=== PATIENT | male | born 1965 | race Caucasian/White ===

== ENCOUNTER → 2017-10-14 | Outpatient (CLI) | payer BC ==
[2017-10-14 15:08] LABS: EOS # 0.2 (0.04-0.40); HEMATOCRIT 53.6 % (42.0-52.0); HEMOGLOBIN 18.5 g/dL (13.5-18.0); MEAN CELL VOLUME 84 fl (78-100); MEAN CORPUSCULAR HEMOGLOBIN 29 pg (27-31); MEAN CORPUSCULAR HGB CONC 35 g/dL (33-37); MEAN PLATELET VOLUME 10.1 fl (7.4-10.4); MONO # 0.7 (0.20-0.80); NEU # 6.6 (1.40-6.50); PLATELET COUNT 264 K/mm3 (130-400); RED BLOOD COUNT 6.35 M/mm3 (4.20-5.60); RED CELL DISTRIBUTION WIDTH 14.8 % (11.5-14.5); WHITE BLOOD COUNT 9.6 K/mm3 (4.8-10.8)
[2017-10-14 15:39] LABS: URINE APPEARANCE CLEAR; URINE COLOR YELLOW
[2017-10-14 15:40] LABS: URINE BILIRUBIN NEGATIVE (NEGATIVE); URINE BLOOD NEGATIVE (NEGATIVE); URINE GLUCOSE NEGATIVE (NEGATIVE); URINE KETONE NEGATIVE (NEGATIVE); URINE LEUKOCYTE ESTERASE TRACE (NEGATIVE); URINE NITRATE NEGATIVE (NEGATIVE); URINE PROTEIN(semi-quant) NEGATIVE (NEGATIVE); URINE UROBILINOGEN NORMAL (NORMAL); URINE WBC 0-1 /hpf (0-3)
[2017-10-14 15:42] LABS: ALBUMIN 4.1 g/dL (3.5-5.0); BUN/CREATININE RATIO 14.2 (6.0-26.0); CALCIUM 9.1 mg/dL (8.4-10.2); POTASSIUM 3.8 mmol/L (3.6-5.0); TOTAL BILIRUBIN 1.2 mg/dL (0.2-1.3); TOTAL PROTEIN 7.7 g/dL (6.3-8.2)
[2017-10-14 16:19] LABS: ERYTHROCYTE SEDIMENTATION RATE 1 mm/hr (0-20)
[2017-10-14 22:48] LABS: TESTOSTERONE 768 ng/dL (221-716)
== END ==
LOC: LAB 14:42
PROVIDERS: Internal Medicine
DX: Z00.00 Encounter for general adult medical examination without abnormal findings (principal); Z12.5 Encounter for screening for malignant neoplasm of prostate; Z12.11 Encounter for screening for malignant neoplasm of colon; E11.9 Type 2 diabetes mellitus without complications; L65.9 Nonscarring hair loss, unspecified; E78.5 Hyperlipidemia, unspecified; R20.2 Paresthesia of skin

== ENCOUNTER → 2017-10-16 | Outpatient (CLI) | payer BC | LOC: LAB 18:31 | DX: Z00.00 Encounter for general adult medical examination without abnormal findings (principal); Z12.11 Encounter for screening for malignant neoplasm of colon; E11.9 Type 2 diabetes mellitus without complications; L65.9 Nonscarring hair loss, unspecified ==

== ENCOUNTER → 2017-11-07 | Day surgery (SDC) | payer BC | END | disposition home or self-care (01) | LOC: MSO 09:15 | DX: Z12.11 Encounter for screening for malignant neoplasm of colon (principal); D12.3 Benign neoplasm of transverse colon; K64.0 First degree hemorrhoids; K64.4 Residual hemorrhoidal skin tags | CPT/HCPCS: 00811; J2704; J7030 ==

== ENCOUNTER → 2019-01-05 | Outpatient (CLI) | payer BC ==
[2019-01-05 10:30] LABS: URINE WBC 0 /hpf (0-3)
[2019-01-05 10:41] LABS: EOS # 0.2 (0.04-0.40); EOS % 2.1 % (0.0-4.0); HEMATOCRIT 50.6 % (42.0-52.0); HEMOGLOBIN 17.3 g/dL (13.5-18.0); LYMPH# 2.6 (1.50-4.00); MEAN CELL VOLUME 84 fl (78-100); MEAN CORPUSCULAR HEMOGLOBIN 29 pg (27-31); MEAN CORPUSCULAR HGB CONC 34 g/dL (33-37); MEAN PLATELET VOLUME 10.1 fl (7.4-10.4); MONO # 0.7 (0.20-0.80); NEU # 4.4 (1.40-6.50); PLATELET COUNT 273 K/mm3 (130-400); RED BLOOD COUNT 6.01 M/mm3 (4.20-5.60); RED CELL DISTRIBUTION WIDTH 13.3 % (11.5-14.5); WHITE BLOOD COUNT 7.9 K/mm3 (4.8-10.8)
[2019-01-05 10:44] LABS: ALBUMIN 4.1 g/dL (3.5-5.0); POTASSIUM 4.1 mmol/L (3.5-5.1)
[2019-01-05 10:45] LABS: CALCIUM 9.6 mg/dL (8.3-10.5)
[2019-01-05 10:46] LABS: TOTAL PROTEIN 7.8 g/dL (6.4-8.3)
[2019-01-05 10:48] LABS: TOTAL BILIRUBIN 1.3 mg/dL (0.2-1.2); URINE APPEARANCE CLEAR; URINE BILIRUBIN NEGATIVE (NEGATIVE); URINE BLOOD NEGATIVE (NEGATIVE); URINE COLOR YELLOW; URINE GLUCOSE NEGATIVE (NEGATIVE); URINE KETONE NEGATIVE (NEGATIVE); URINE LEUKOCYTE ESTERASE NEGATIVE (NEGATIVE); URINE NITRATE NEGATIVE (NEGATIVE); URINE PROTEIN(semi-quant) NEGATIVE (NEGATIVE); URINE UROBILINOGEN NORMAL (NORMAL)
[2019-01-05 12:03] LABS: ERYTHROCYTE SEDIMENTATION RATE 1 mm/hr (0-20)
[2019-01-05 23:14] LABS: TESTOSTERONE 680 ng/dL (221-716)
[2019-01-06 00:22] LABS: CREATININE OTHER SOURCE 28 mg/dL (())
== END ==
LOC: LAB 10:23
PROVIDERS: Internal Medicine
DX: Z00.00 Encounter for general adult medical examination without abnormal findings (principal); Z12.5 Encounter for screening for malignant neoplasm of prostate; Z12.11 Encounter for screening for malignant neoplasm of colon; E53.8 Deficiency of other specified B group vitamins; E11.9 Type 2 diabetes mellitus without complications; E89.1 Postprocedural hypoinsulinemia

== ENCOUNTER → 2020-02-11 | Outpatient (CLI) | payer OTHER ==
[2020-02-11 08:55] LABS: URINE WBC 0 /hpf (0-3)
[2020-02-11 09:11] LABS: BASO # 0.1 (0.02-0.10); EOS # 0.2 (0.04-0.40); EOS % 2.1 % (0.0-4.0); HEMATOCRIT 50.3 % (42.0-52.0); HEMOGLOBIN 17.2 g/dL (13.5-18.0); LYMPH# 2.6 (1.50-4.00); MEAN CELL VOLUME 85 fl (78-100); MEAN CORPUSCULAR HEMOGLOBIN 29 pg (27-31); MEAN CORPUSCULAR HGB CONC 34 g/dL (33-37); MEAN PLATELET VOLUME 10.3 fl (7.4-10.4); MONO # 0.8 (0.20-0.80); PLATELET COUNT 282 K/mm3 (130-400); RED BLOOD COUNT 5.95 M/mm3 (4.20-5.60); RED CELL DISTRIBUTION WIDTH 13.9 % (11.5-14.5); WHITE BLOOD COUNT 7.6 K/mm3 (4.8-10.8)
[2020-02-11 09:24] LABS: ALBUMIN 4.4 g/dL (3.5-5.0)
[2020-02-11 09:25] LABS: CALCIUM 9.6 mg/dL (8.3-10.5)
[2020-02-11 09:26] LABS: TOTAL PROTEIN 7.8 g/dL (6.4-8.3)
[2020-02-11 09:28] LABS: TOTAL BILIRUBIN 1.3 mg/dL (0.2-1.2)
[2020-02-11 09:44] LABS: URINE APPEARANCE CLEAR; URINE BILIRUBIN NEGATIVE (NEGATIVE); URINE BLOOD NEGATIVE (NEGATIVE); URINE COLOR YELLOW; URINE GLUCOSE NEGATIVE (NEGATIVE); URINE KETONE NEGATIVE (NEGATIVE); URINE LEUKOCYTE ESTERASE NEGATIVE (NEGATIVE); URINE NITRATE NEGATIVE (NEGATIVE); URINE PROTEIN(semi-quant) NEGATIVE (NEGATIVE); URINE UROBILINOGEN NORMAL (NORMAL)
[2020-02-11 10:20] LABS: ERYTHROCYTE SEDIMENTATION RATE 1 mm/hr (0-20)
[2020-02-12 02:21] LABS: TESTOSTERONE 120 ng/dL (221-716)
[2020-02-12 03:07] LABS: CREATININE OTHER SOURCE 44 mg/dL (())
== END ==
LOC: LAB 08:49
PROVIDERS: Internal Medicine
DX: Z00.00 Encounter for general adult medical examination without abnormal findings (principal); Z12.11 Encounter for screening for malignant neoplasm of colon; Z12.5 Encounter for screening for malignant neoplasm of prostate

== ENCOUNTER → 2020-03-21 | Outpatient (CLI) | payer OTHER | LOC: LAB 12:58 | DX: U07.1 COVID-19 (principal) ==

== ENCOUNTER → 2020-06-30 | Outpatient (CLI) | payer OTHER | LOC: LAB 11:06 | DX: E29.1 Testicular hypofunction (principal) ==

== ENCOUNTER → 2020-09-23 | Outpatient (CLI) | payer OTHER ==
[2020-09-23 11:10] LABS: BASO # 0.04 (0.02-0.10); EOS # 0.17 (0.04-0.40); HEMATOCRIT 54.3 % (42.0-52.0); LYMPH# 2.71 (1.50-4.00); MEAN CELL VOLUME 83 fl (78-100); MEAN CORPUSCULAR HEMOGLOBIN 28 pg (27-31); MEAN CORPUSCULAR HGB CONC 33 g/dL (33-37); MONO # 0.79 (0.20-0.80); NEU # 4.76 (1.40-6.50); PLATELET COUNT 281 K/mm3 (130-400); RED BLOOD COUNT 6.54 M/mm3 (4.20-5.60); RED CELL DISTRIBUTION WIDTH 16.5 % (11.5-14.5); WHITE BLOOD COUNT 8.5 K/mm3 (4.8-10.8)
[2020-09-23 11:29] LABS: POTASSIUM 3.9 mmol/L (3.5-5.1); SODIUM 139 mmol/L (136-145)
[2020-09-23 11:31] LABS: CALCIUM 9.4 mg/dL (8.3-10.5)
[2020-09-23 11:32] LABS: GLUCOSE 89 mg/dL (75-110); TOTAL PROTEIN 7.1 g/dL (6.4-8.3)
[2020-09-23 11:33] LABS: CARBON DIOXIDE 26 mmol/L (22-29)
[2020-09-23 11:34] LABS: TOTAL BILIRUBIN 1.4 mg/dL (0.2-1.2)
[2020-09-23 11:37] LABS: AST-SGOT 24 U/L (5-34)
[2020-09-23 11:38] LABS: ALT/SGPT 27 U/L (0-55)
[2020-09-23 11:53] LABS: TROPONIN-I < 0.03 ng/mL (<0.030)
[2020-09-23 12:31] LABS: ERYTHROCYTE SEDIMENTATION RATE 1 mm/hr (0-20)
== END ==
LOC: LAB 10:50 → RAD 10:50
PROVIDERS: Internal Medicine
DX: R06.00 Dyspnea, unspecified (principal)

== ENCOUNTER → 2020-09-29 | Outpatient (CLI) | payer OTHER | LOC: RAD 08:47 | DX: R06.00 Dyspnea, unspecified (principal) | CPT/HCPCS: Q9967 ==

== ENCOUNTER → 2020-10-10 | Outpatient (CLI) | payer OTHER | LOC: CARDREHAB 12:01 | DX: R06.00 Dyspnea, unspecified (principal) | CPT/HCPCS: A9500 ==

== ENCOUNTER → 2021-05-11 | Outpatient (CLI) | payer OTHER ==
[2021-05-11 12:32] LABS: BASO # 0.03 K/mm3 (0.02-0.10); EOS # 0.05 K/mm3 (0.04-0.40); EOS % 0.6 % (0.0-4.0); HEMATOCRIT 39.2 % (42.0-52.0); HEMOGLOBIN 15.4 g/dL (13.5-18.0); LYMPH# 2.52 K/mm3 (1.50-4.00); MEAN CELL VOLUME 95 fl (78-100); MEAN CORPUSCULAR HEMOGLOBIN 37 pg (27-31); MEAN CORPUSCULAR HGB CONC 39 g/dL (33-37); MEAN PLATELET VOLUME 9.1 fl (7.4-10.4); MONO # 0.61 K/mm3 (0.20-0.80); NEU # 4.76 K/mm3 (1.40-6.50); PLATELET COUNT 293 K/mm3 (130-400); RED BLOOD COUNT 4.12 M/mm3 (4.20-5.60); RED CELL DISTRIBUTION WIDTH 12.8 % (11.5-14.5)
[2021-05-11 12:35] LABS: PH-URINE 7.5 (5.0 - 8.0); URINE APPEARANCE CLEAR; URINE BILIRUBIN NEGATIVE (NEGATIVE); URINE BLOOD NEGATIVE (NEGATIVE); URINE COLOR YELLOW; URINE GLUCOSE NEGATIVE (NEGATIVE); URINE KETONE NEGATIVE (NEGATIVE); URINE LEUKOCYTE ESTERASE NEGATIVE (NEGATIVE); URINE NITRATE NEGATIVE (NEGATIVE); URINE PROTEIN(semi-quant) TRACE (NEGATIVE); URINE UROBILINOGEN NORMAL (NORMAL)
[2021-05-11 13:03] LABS: POTASSIUM 3.9 mmol/L (3.5-5.1)
[2021-05-11 13:05] LABS: CALCIUM 9.6 mg/dL (8.3-10.5)
[2021-05-11 13:06] LABS: TOTAL PROTEIN 7.4 g/dL (6.4-8.3)
[2021-05-11 13:08] LABS: TOTAL BILIRUBIN 1.8 mg/dL (0.2-1.2)
[2021-05-11 13:13] LABS: MAGNESIUM 1.73 mg/dL (1.60-2.60)
[2021-05-11 13:41] LABS: ERYTHROCYTE SEDIMENTATION RATE 7 mm/hr (0-20)
[2021-05-11 23:23] LABS: TESTOSTERONE 843 ng/dL (221-716)
== END ==
LOC: LAB 12:08
PROVIDERS: Internal Medicine
DX: Z00.00 Encounter for general adult medical examination without abnormal findings (principal); Z12.5 Encounter for screening for malignant neoplasm of prostate

== ENCOUNTER → 2024-04-27 | Outpatient (CLI) | payer BC, OTHER ==
[2024-04-27 09:51] LABS: BASO # 0.03 K/mm3 (0.02-0.10); EOS # 0.23 K/mm3 (0.04-0.40); EOS % 2.5 % (0.0-4.0); HEMATOCRIT 53.5 % (42.0-52.0); HEMOGLOBIN 17.9 g/dL (13.5-18.0); LYMPH# 2.48 K/mm3 (1.50-4.00); MEAN CELL VOLUME 86 fl (78-100); MEAN CORPUSCULAR HEMOGLOBIN 29 pg (27-31); MEAN CORPUSCULAR HGB CONC 34 g/dL (33-37); MEAN PLATELET VOLUME 9.7 fl (7.4-10.4); MONO # 0.85 K/mm3 (0.20-0.80); NEU # 5.62 K/mm3 (1.40-6.50); PLATELET COUNT 302 K/mm3 (130-400); WHITE BLOOD COUNT 9.2 K/mm3 (4.8-10.8)
[2024-04-27 09:55] LABS: ALBUMIN 4.1 g/dL (3.5-5.0)
[2024-04-27 09:57] LABS: TOTAL PROTEIN 7.7 g/dL (6.4-8.3)
[2024-04-27 09:59] LABS: TOTAL BILIRUBIN 0.9 mg/dL (0.2-1.2)
[2024-04-27 10:04] LABS: MAGNESIUM 1.87 mg/dL (1.60-2.60); URINE APPEARANCE CLEAR (CLEAR); URINE COLOR YELLOW (YELLOW)
[2024-04-27 10:05] LABS: PH-URINE 6.5 (5.0 - 8.0); URINE BILIRUBIN NEGATIVE (NEGATIVE); URINE BLOOD NEGATIVE (NEGATIVE); URINE GLUCOSE NEGATIVE (NEGATIVE); URINE KETONE NEGATIVE (NEGATIVE); URINE LEUKOCYTE ESTERASE NEGATIVE (NEGATIVE); URINE NITRATE NEGATIVE (NEGATIVE); URINE PROTEIN(semi-quant) NEGATIVE (NEGATIVE); URINE WBC 0-1 /hpf (0-3)
== END ==
LOC: LAB 09:21
PROVIDERS: Internal Medicine
DX: Z00.00 Encounter for general adult medical examination without abnormal findings (principal); Z12.5 Encounter for screening for malignant neoplasm of prostate; E11.9 Type 2 diabetes mellitus without complications; E78.2 Mixed hyperlipidemia

== ENCOUNTER → 2024-05-25 | Outpatient (CLI) | payer BC, OTHER | LOC: RAD 15:54 | DX: M79.671 Pain in right foot (principal) ==